=== PATIENT | female | born 1995 | race Caucasian/White ===

== ENCOUNTER 2019-06-15 07:58 | Emergency (ER) | payer MEDICAID, OTHER ==
--- OUTSIDE RECORDS SUMMARY | 2019-06-15 08:12 | XMS REPORT | Continuity of Care Document ---
:1995 External Reference #:[id number] Author Name Ian Phyllis Care Team Providers Name Role Phone Kylee Kumar RPA Primary Care Physician Unavailable Payers Date Identification Numbers Payment Provider Subscriber Effective: 2018 Policy Number: [id number] Medicaid Katy Nuñez Group Name: 1 1 [address] PayID: [id number] [place] [address] Expires: 2018 Policy Number: [id number] [place] Katy Nuñez PayID: [id number] [address] [place] [address] Family History Date Family Member(s) Observation Comments General Stroke General Seizure Disorder Father Stroke Father Seizure Disorder Mother Rheumatoid Arthritis Mother Alive And Well Occasional migraine Siblings 1 Alive and Well Female at the age of 21 Social History Type Date Description Comments Sex Unknown Occupation Teacher [employer] ETOH Use Rarely consumes alcohol 1 glass of wine once a month Recreational Drug Use Regularly uses Marijuana Tobacco Use Start: Unknown End: Patient is a former quit 03/18 Unknown smoker Smoking Status Reviewed: 05/23/19 Patient is a former quit 03/18 smoker Exercise Type/Frequency Exercises regularly Yoga twice a week Allergies, Adverse Reactions, Alerts Description No Known Drug Allergies Medications Active Medications SIG Qnty Indications Ordering Provider Date Lamotrigine 1 by mouth twice 180tabs G40.209 Nolberto Holliday, 03/27/2019 100mg a day M.D. Tablets Aspirin one tablet as Unknown 81 Chewtabs needed Ibuprofen one tablet as Unknown 200mg needed Capsules Allergy 24Hour once a day as Unknown Indoor/Outdoor needed 10mg Tablets History Medications Levetiracetam Take 3 Tabs By Mouth 42Tablet Mickey Moyer, 03/13/2019 - 250mg Daily X1 Week, 2 Tabs PRACTICE ADMINISTRATOR 05/22/2019 Tablets Twice A Day X1 Week,1 Tab Once Daily X1 Week,Discontinue. Levetiracetam Take 3 Tabs By Mouth 42Tablet Mickey Claudiake, 03/12/2019 - 250mg Daily X1 Week, 2 Tabs PRACTICE ADMINISTRATOR 03/11/2019 Tablets Twice A Day X1 Week,1 Tab Once Daily X1 Week,Discontinue. Levetiracetam Take 3 Tabs By Mouth 42Tablet Mickey Moyer, 03/12/2019 - 250mg Daily X1 Week, 2 Tabs PRACTICE ADMINISTRATOR 03/12/2019 Tablets Twice A Day X1 Week,1 Tab Once Daily X1 Week,Discontinue. Lamotrigine Take one tab po qd for 240tabs G40.20 Nolberto Howard 02/20/2019 - 25mg 1 wk, 1 tab bid po for 9 Caitlyn Holliday 03/27/2019 Tablets 1 wk, 2 tabs po bid for 1 week, 3 tabs po bid for 1 week, 4 tabs po bid Levetiracetam Take 3 Tabs By Mouth 42tabs Nolberto Reed. 02/20/2019 - 250mg Daily X1 Week, 2 Tabs Caitlyn Holliday 03/11/2019 Tablets Twice A Day X1 Week,1 Tab Once Daily X1 Week,Discontinue. Keppra one tablet twice a day 180tabs Nolberto Reed. - 500mg Caitlyn Holliday 02/20/2019 Tablets Vital Signs Date Vital Result Comment 05/23/2019 9:47am Height 61 inches 5'1" Weight 100.00 lb Heart Rate 66 /min BP Systolic 124 mmHg BP Diastolic 78 mmHg BMI (Body Mass Index) 18.9 kg/m2 02/20/2019 3:14pm Height 61 inches 5'1" Weight 105.00 lb Heart Rate 80 /min BP Systolic 118 mmHg BP Diastolic 80 mmHg BMI (Body Mass Index) 19.8 kg/m2 11/28/2018 1:12pm Height 61 inches 5'1" Weight 102.00 lb Heart Rate 84 /min BP Systolic 110 mmHg BP Diastolic 82 mmHg BMI (Body Mass Index) 19.3 kg/m2 09/27/2018 3:16pm Height 61 inches 5'1" Weight 100.00 lb Heart Rate 88 /min BP Systolic Sitting 118 mmHg BP Diastolic Sitting 78 mmHg Respiratory Rate 16 /min BMI (Body Mass Index) 18.9 kg/m2 04/26/2018 1:20pm Height 61 inches 5'1" Weight 100.00 lb Heart Rate 84 /min BP Systolic Sitting 120 mmHg BP Diastolic Sitting 84 mmHg Respiratory Rate 16 /min BMI (Body Mass Index) 18.9 kg/m2 03/22/2018 12:55pm Height 61 inches 5'1" Weight 95.50 lb Heart Rate 80 /min BP Systolic Sitting 110 mmHg BP Diastolic Sitting 80 mmHg Respiratory Rate 16 /min BMI (Body Mass Index) 18.0 kg/m2 Procedures Date Code Description Status 04/25/2018 53875 EEG Recording Awake & Asleep Completed Encounters Type Date Location Provider Dx Diagnosis Office Visit 02/20/2019 [facility] Mickey Moyer NP G40.209 Local- rel symptc 3:30p [facility] epi w cmplx prt seiz,not ntrct,w/o stat epi Office Visit 11/28/2018 [facility] Nolberto Howard G40.209 Local-rel symptc 1:15p [facility] Holliday M.D. epi w cmplx prt seiz,not ntrct,w/o stat epi Office Visit 09/27/2018 [facility] Nolberto Howard G40.209 Local-rel symptc 3:00p [facility] Est[facility] Holliday M.D. epi w cmplx prt seiz,not ntrct,w/o stat epi Z79.899 [facility] Office Visit 04/26/2018 1:30p [facility] Nolberto Howard G40.209 Local- rel [facility] Of Est[facility] Holliday M.D. sympfernie epi w cmplx prt seiz,not ntrct,w/o stat epi Office Visit 03/22/2018 1:00p [facility] Nolberto Howard G40.209 Local- rel [facility] Est[facility] Holliday M.D. symptc epi w cmplx prt seiz,not ntrct,w/o stat epi Plan of Treatment Future Appointment(s):06/16/2020 10:00 am - Mickey Moyer NP at [facility]05/23/2019 - Mickey Moyer, NPG40.209 Localization- related (focal) (partial) symptomatic epilepsyFollow up:ONE YEARZ79.899 [facility] jail (current) drug therapy
[2019-06-15 08:23] VITALS: BP 116/77
--- NOTE | 2019-06-15 08:58 | UC ---
Rectal Pain HPI - HPI Summary HPI Summary: 23 y/o F with anal fissure complaint. Patient states that she has had some intermittent rectal bleeding for approximately 2 months. She states she is having a tearing burning pain with all movements. She states her bowel movements at times can be large. She trying to prevent straining. Nothing improves her symptoms. Straining worsened symptoms. She states she is having intermittent bright red blood on her toilet paper. No blood in the stool. No blood in the toilet water. No fevers chills or weight loss. No abdominal pain. She is worried for anal fissure. 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 for this - History Of Current Complaint Chief Complaint: UCGeneralIllness Stated Complaint: PERSONAL Time Seen by Provider: 06/15/19 08:42 Hx Obtained From: Patient Hx Last Menstrual Period: April 23 Onset/Duration: Gradual Onset Timing: Intermittent Episodes Lasting: Pain Intensity: 1 Associated Signs And Symptoms: Positive: Bright Red Blood w/Stool - Allergies/Home Medications Allergies/Adverse Reactions: Allergies Allergy/AdvReac Type Severity Reaction Status Date / Time latex Allergy SUSPICION Verified 06/15/19 08:23 OF ALLERGY Home Medications: Home Medications lamoTRIgine [Lamictal] 100 mg PO BID 06/15/19 [History Confirmed 06/15/19] PMH/Surg Hx/FS Hx/Imm Hx Previously Healthy: Yes - Surgical History Surgical History: Yes Surgery Procedure, Year, and Place: WISDOM TEETH - Family History Known Family History: Positive: None - Social History Occupation: Student Alcohol Use: Rare Substance Use Type: Marijuana Substance Use Comment - Amount & Last Used: occasionally Smoking Status (MU): Never Smoked Tobacco Review of Systems All Other Systems Reviewed And Are Negative: Yes Gastrointestinal: Positive: Other - Intermittent bright red blood per rectum with bowel movements Physical Exam Triage Information Reviewed: Yes Appearance: Well-Appearing, No Pain Distress, Well-Nourished Vital Signs: Initial Vital Signs Temp 98.2 F 06/15/19 08:17 Pulse 81 06/15/19 08:17 Resp 18 06/15/19 08:17 BP 116/77 06/15/19 08:17 Pulse Ox 100 06/15/19 08:17 Eye Exam: Normal ENT Exam: Normal Dental Exam: Normal Neck exam: Normal Neck: Positive: 1 Respiratory Exam: Normal Cardiovascular Exam: Normal Abdominal Exam: Normal Pelvic Exam: Positive: Other - Small anal fissure approximately 9:00. No hemorrhoids. No discharge. Chaperoned with Freda Musculoskeletal Exam: Normal Neurological Exam: Normal Psychological Exam: Normal Skin Exam: Normal Rectal Pain Course/Dx - Course Course Of Treatment: No hemorrhoids noted. Likely fissure at this time. Based on her symptoms and examination likely fissure. Given prescription for diltiazem cream. Given information to follow up with pitch flaker if this persists. Also advised to follow up with primary care doctor in 2 or 3 days. Patient is aware and agreeable to plan. Discussed giving nitroglycerin for the topical cream patient but with a history of headache and migraine so we went to the other medication. - Differential Dx/Diagnosis Differential Diagnosis/HQI/PQRI: Hemorrhoid(s), Rectal Fissure Provider Diagnosis: Anal fissure Discharge - Sign-Out/Discharge Documenting (check all that apply): Patient Departure All imaging exams completed and their final reports reviewed: No Studies - Discharge Plan Condition: Good Disposition: HOME Prescriptions: Dolizem See Taper TOPICAL BID PRN #1 tube PRN Reason: Pain - Mild Patient Education Materials: Anal Fissure (ED) Referrals: Fabian Hamilton MD [Medical Doctor] - 7 Days (GI referral if needed ) Kylee Kumar PA [Primary Care Provider] - 4 Days - Billing Disposition and Condition Condition: GOOD Disposition: Home
== END 2019-06-15 08:58 | disposition home or self-care (01) ==
LOC: UCCORT 07:58
DX: K60.2 Anal fissure, unspecified (principal)
CPT/HCPCS: 99212; G0463

== ENCOUNTER 2019-08-10 11:31 | Emergency (ER) | payer BC, MEDICAID, OTHER ==
[2019-08-10 12:37] VITALS: BP 129/89
--- NOTE | 2019-08-10 12:54 | UC ---
Rectal Pain HPI - HPI Summary HPI Summary: 23 yo with months of rectal pain and bleeding, with dx of fissure. Has not been able to obtain compounded cream which was recommended. Irregular stools, aware of some withholding due to pain. No anal penetration with intercourse/objects. - History Of Current Complaint Chief Complaint: UCGI Stated Complaint: PERSONAL Time Seen by Provider: 08/10/19 12:44 Hx Obtained From: Patient Hx Last Menstrual Period: 08/10/19 Onset/Duration: Gradual Onset, Lasting Weeks Timing: Intermittent Episodes Lasting: - minutes-->painful stool passage. Pain Intensity: 0 Location Of Pain: Anal Character: Sharp Aggravating Factor(s): Bowel Movement Alleviating Factor(s): Nothing Associated Signs And Symptoms: Positive: Rectal Bleeding, Constipation - Allergies/Home Medications Allergies/Adverse Reactions: Allergies Allergy/AdvReac Type Severity Reaction Status Date / Time latex Allergy SUSPICION Verified 06/15/19 08:23 OF ALLERGY PMH/Surg Hx/FS Hx/Imm Hx Previously Healthy: Yes GI/ History: Other - irritable bowel - Surgical History Surgical History: Yes Surgery Procedure, Year, and Place: WISDOM TEETH - Family History Known Family History: Positive: None, Non-Contributory - Social History Occupation: Employed Part-time - vocational technical education teacher, 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 Lives: Alone Alcohol Use: Rare Substance Use Type: Marijuana Substance Use Comment - Amount & Last Used: occasionally Smoking Status (MU): Never Smoked Tobacco Review of Systems All Other Systems Reviewed And Are Negative: Yes Constitutional: Positive: Negative Skin: Positive: Negative Gastrointestinal: Negative: Abdominal Pain Genitourinary: Positive: Negative Motor: Positive: Negative Neurovascular: Positive: Negative Musculoskeletal: Positive: Negative Is Patient Immunocompromised?: No Physical Exam Triage Information Reviewed: Yes Appearance: Well-Appearing, Pain Distress - mild, Thin Vital Signs: Initial Vital Signs Temp 98.6 F 08/10/19 12:25 Pulse 68 08/10/19 12:25 Resp 16 08/10/19 12:25 BP 129/89 08/10/19 12:25 Pulse Ox 100 08/10/19 12:25 ENT: Positive: Normal ENT inspection Neck exam: Normal Respiratory: Positive: Lungs clear Cardiovascular: Positive: RRR, No Murmur Abdomen Description: Positive: Nontender, Soft, Other: - anal area with small fissues in 3 and 6 o'clock positions. No active bleeding. No external hemorrhoids. No skin erythema or maceration. Musculoskeletal Exam: Normal Psychological Exam: Normal Skin Exam: Normal Rectal Pain Course/Dx - Course Course Of Treatment: anusol HC cream and stool softener. - Differential Dx/Diagnosis Differential Diagnosis/HQI/PQRI: Rectal Fissure Provider Diagnosis: Rectal fissure Discharge ED - Sign-Out/Discharge Documenting (check all that apply): Patient Departure All imaging exams completed and their final reports reviewed: No Studies - Discharge Plan Condition: Stable Disposition: HOME Prescriptions: Hydrocortisone [Procto-Med Hc] 2.5 % TX BID #30 gm Patient Education Materials: Anal Fissure (ED) Referrals: Kylee Kumar PA [Primary Care Provider] - Eleno Way MD [Medical Doctor] - Additional Instructions: Apply cream to connor-anal area twice daily, and you can insert rectally if tolerated. It helps to keep your stools soft and regular: Options for this are once daily Miralax taking one capsuleful once daily in cold juice or water. The dose needs to be adjusted to ensure adequate amount but not overdoing it. A fiber supplement is the other option. You could try benefiber one packet or capsule daily. For either to work, you do need to drink about 6 glasses of water per day. If this is failing, you have a referral for surgical opinion on management. - Billing Disposition and Condition Condition: STABLE Disposition: Home
== END 2019-08-10 13:14 | disposition home or self-care (01) ==
LOC: UCCORT 11:31
DX: K60.2 Anal fissure, unspecified (principal); Z91.040 Latex allergy status
CPT/HCPCS: 99212; G0463